=== PATIENT | female | born 1990 | race Caucasian/White ===

== ENCOUNTER 2024-08-19 10:27 | Emergency (ER) | payer BC, SELFPAY ==
[2024-08-19 10:56] VITALS: BP 127/87
--- NOTE | 2024-08-19 10:58 | ED.GENMED ---
ED Provider Triage
<Dena Downey PA-C - Last Filed: 08/19/24 11:01>
-
Patient seen by provider in Triage?: Seen in Triage
Attestation: A medical screening examination has been initiated by a qualified medical provider. Based on the assessment performed at this time, it has been determined that an emergent medical condition may exist and the patient has been informed
that further medical evaluation and possible additional diagnostic testing may be needed.
HPI: 33yoF currently 6 weeks . C/o R ovary pain. Sent here by her OBGYN to r/o ectopic . Has not had an US or seen OB yes this .
GENERAL: Alert , in no apparent distress
EYE: No visual abnormalities.
NECK: Trachea midline
ENT: No visible abnormalities.
LUNGS: No acute respiratory distress
NEUROLOGICAL: Alert and oriented
SKIN: Skin intact. No visible changes.
MUSCULOSKELETAL: Moving extremities normally
PSYCH: Normal and appropriate interaction.
This is a medical evaluation conducted in person to initiate diagnostic evaluation and provide initial therapeutics. Please see further documentation by the treating clinician.
CBC, CMP, quantitative HCG, and TVUS ordered.
History of Present Illness
<Dena Downey PA-C - Last Filed: 08/19/24 11:01>
General
Chief Complaint: Problems
Time Seen by Provider: 08/19/24 12:08
<Matteo Rubi PA-C - Last Filed: 08/19/24 14:18>
General
Source: patient
Exam Limitations: none
History of Present Illness
History of Present Illness:
33-year-old female presents complaining of right sided abdominal pain over the past day and a half. It is a little better right now than it has been recently. She denies any vaginal bleeding. She estimates she is about 6 weeks .
She is due to see her OB for the first time next week. [place]. No chest pain or shortness of breath. No other complaints at this time
Phy Exam
<Matteo Rubi PA-C - Last Filed: 08/19/24 14:18>
Physical Exam
Physical Exam:
General: Well-appearing female no acute distress
HEENT: Normocephalic atraumatic
Heart: Regular rate and rhythm no murmurs
Lungs: Clear no wheeze
Abdomen soft nontender nondistended no guarding rebound normal bowel sounds
Extremities: No sign of
Course
<Dena Downey PA-C - Last Filed: 08/19/24 11:01>
Orders/Labs/Results
Orders:
Orders
08/19/24 11:00
w/ Transvaginal US [US W Transvaginal] Urgent
Comment:
Reason For Exam: RLQ pain, 6 weeks , r/o ectopic
08/19/24 11:06
Beta HCG Quantitative Urgent
Is this a screen?: No
Complete Blood Count/With Diff Urgent
Comprehensive Metabolic Panel Urgent
Abnormal Lab Results
08/19/24
11:06
MCH 26.8 L pg
(27.0-31.0)
MCHC 32.8 L g/dL
(33.0-37.0)
08/19/24 11:06
08/19/24 11:06
Vital Signs
Initial and Last Documented VS:
Initial Vital Signs
Temp Pulse Resp BP Pulse Ox
98.9 F 80 16 127/87 100
08/19/24 10:56 08/19/24 10:56 08/19/24 10:56 08/19/24 10:56 08/19/24 10:56
Last Documented Vital Signs
Temp Pulse Resp BP Pulse Ox
98.9 F 80 16 127/87 100
08/19/24 10:56 08/19/24 10:56 08/19/24 10:56 08/19/24 10:56 08/19/24 10:56
<Matteo Rubi PA-C - Last Filed: 08/19/24 14:18>
Orders/Labs/Results
Orders:
Orders
08/19/24 11:00
w/ Transvaginal US [US W Transvaginal] Urgent
Comment:
Reason For Exam: RLQ pain, 6 weeks , r/o ectopic
08/19/24 11:06
Beta HCG Quantitative Urgent
Is this a screen?: No
Complete Blood Count/With Diff Urgent
Comprehensive Metabolic Panel Urgent
Abnormal Lab Results
08/19/24
11:06
MCH 26.8 L pg
(27.0-31.0)
MCHC 32.8 L g/dL
(33.0-37.0)
08/19/24 11:06
08/19/24 11:06
Vital Signs
Initial and Last Documented VS:
Initial Vital Signs
Temp Pulse Resp BP Pulse Ox
98.9 F 80 16 127/87 100
08/19/24 10:56 08/19/24 10:56 08/19/24 10:56 08/19/24 10:56 08/19/24 10:56
Last Documented Vital Signs
Temp Pulse Resp BP Pulse Ox
98.9 F 80 16 127/87 100
08/19/24 10:56 08/19/24 10:56 08/19/24 10:56 08/19/24 10:56 08/19/24 10:56
Information
Weeks gestation: N/A
Location: N/A
<Matteo Rubi PA-C - Last Filed: 08/19/24 14:18>
MDM/Problems Addressed
Differential Diagnosis Includes:
Right sided abdominal pain. Sent in by OB to rule out ectopic. Serum hCG is 1807
Hemoglobin stable vital signs stable
Ultrasound reviewed that was ordered through triage with demonstrates 4 mm finding what was thought to be in the uterus but it is unclear. There is also a left sided ovarian cyst. Ectopic not completely ruled out
Discussed findings with OB who recommended repeat hCG early next week with close follow-up in the office. Patient was made aware of this. Stable for discharge
<Matteo Rubi PA-C - Last Filed: 08/19/24 14:18>
*Critical Care Note
Total Time (30-74mins, 75-104mins- exclusive of procedures): Not Applicable
ED Attending Note
<Dena Downey PA-C - Last Filed: 08/19/24 11:01>
-
Portions of this chart may have been created with voice recognition software.� Occasional wrong word or��sound alike� substitutions may have occurred due to the inherent limitations of voice recognition software.
Discharge Plan
Departure
Patient Disposition: Home (Routine Discharge)
Date of Disposition: 08/19/24
Time of Disposition: 14:13
Patient with high blood pressure during this ER visit?: No
Discharge Problem:
Abdominal pain
Instructions: Miscarriage (DC), symptoms
Prescriptions:
No Action
cyclobenzaprine 10 mg tablet
10 mg PO TID PRN (Reason: muscle spasm) Qty: 21 0RF
Referrals:
NONE,* [Family Provider] -
Activity Restrictions/Additional Instructions:
Please have blood rechecked early next week. Please continue to follow-up as planned with OB. Return here for increasing pain lightheadedness fever vomiting or other concerning findings
Discharge Date and Time
Print Language: DOMINICAN
[2024-08-19 11:19] LABS: % Basophils 0.2 % (0-2); % Eosinophils 0.7 % (0-6); % Immature Granulocytes 0.4 % (0-0.5); % Lymphocytes 23.7 % (20.5-51.1); % Monocytes 5.8 % (1.7-9.3); % Neutrophils 69.2 % (42.2-75.2); Absolute Eosinophils 0.1 10^3/uL (0-0.7); Absolute Monocytes 0.5 10^3/uL (0.1-0.6); Absolute Neutrophils 5.9 10^3/uL (1.4-6.5); Hemoglobin 12.8 g/dL (12.0-16.0); Mean Corp Hgb Conc. 32.8 g/dL (33.0-37.0); Mean Corpuscular Hgb 26.8 pg (27.0-31.0); Mean Corpuscular Volume 81.8 fL (81.0-99.0); Mean Platelet Volume 8.5 fL (7.4-10.4); Nucleated Red Blood Cells % 0 %; Platelet Count 332 10^3/uL (130-400); Red Blood Cell Count 4.77 10^6/uL (4.20-5.40); Red Cell Dist. Width 13.2 % (11.5-14.5); White Blood Cell Count 8.5 10^3/uL (4.8-10.8)
[2024-08-19 11:39] LABS: ALT (SGPT) 20 U/L (0-35); AST (SGOT) 20 U/L (14-36); Albumin 4.4 g/dl (3.5-5.0); Alkaline Phosphatase 78 U/L (38-126); Blood Urea Nitrogen 8 mg/dl (7-17); Calcium 9.8 mg/dl (8.4-10.2); Carbon Dioxide 25 mmol/L (22-30); Chloride 104 mmol/L (98-107); Glucose 97 mg/dl (70-99); Potassium 4.2 mmol/L (3.5-5.1); Sodium 140 mmol/L (135-145); Total Bilirubin 0.9 mg/dl (0.2-1.3); Total Protein 6.9 g/dl (6.3-8.2); eGFR > 60.00
[2024-08-19 12:00] VITALS: BP 123/58
[2024-08-19 14:00] VITALS: BP 128/67
== END 2024-08-19 14:27 | disposition home or self-care (01) ==
LOC: EMR 10:27
PROVIDERS: Physician Assistant; EMERGENCY PHYSICIAN Student in an Organized Health Care Education/Training Program
DX: O26.891 Other specified pregnancy related conditions, first trimester (principal); R10.31 Right lower quadrant pain; Z3A.01 Less than 8 weeks gestation of pregnancy
CPT/HCPCS: 99284; 76801; 76817; 80053; 84702; 85025

== ENCOUNTER → 2024-08-25 11:28 | Outpatient (REF) | payer BC, SELFPAY | LOC: RAD 11:28 | PROVIDERS: ATTENDING PHYSICIAN Advanced Practice Midwife | DX: R10.2 Pelvic and perineal pain (principal) | CPT/HCPCS: 76801; 76817 ==

== ENCOUNTER → 2024-08-30 13:52 | Outpatient (REF) | payer BC, SELFPAY | LOC: RAD 13:52 | PROVIDERS: ATTENDING PHYSICIAN Obstetrics & Gynecology | DX: R10.2 Pelvic and perineal pain (principal) | CPT/HCPCS: 76801 ==

== ENCOUNTER 2024-09-06 14:15 | Emergency (ER) | payer BC, SELFPAY ==
[2024-09-06 14:26] VITALS: BP 139/78
[2024-09-06 14:58] LABS: % Basophils 0.2 % (0-2); % Eosinophils 0.5 % (0-6); % Immature Granulocytes 0.2 % (0-0.5); % Lymphocytes 20.1 % (20.5-51.1); % Monocytes 5.2 % (1.7-9.3); % Neutrophils 73.8 % (42.2-75.2); Absolute Lymphocytes 1.8 10^3/uL (1.2-3.4); Absolute Monocytes 0.5 10^3/uL (0.1-0.6); Absolute Neutrophils 6.4 10^3/uL (1.4-6.5); Hematocrit 36.2 % (37.0-47.0); Hemoglobin 12.1 g/dL (12.0-16.0); Mean Corp Hgb Conc. 33.4 g/dL (33.0-37.0); Mean Corpuscular Hgb 27.1 pg (27.0-31.0); Mean Platelet Volume 8.7 fL (7.4-10.4); Nucleated Red Blood Cells % 0 %; Platelet Count 287 10^3/uL (130-400); Red Blood Cell Count 4.47 10^6/uL (4.20-5.40); Red Cell Dist. Width 13.2 % (11.5-14.5); White Blood Cell Count 8.7 10^3/uL (4.8-10.8)
[2024-09-06 15:11] LABS: ALT (SGPT) 17 U/L (0-35); AST (SGOT) 18 U/L (14-36); Albumin 4.2 g/dl (3.5-5.0); Alkaline Phosphatase 70 U/L (38-126); Blood Urea Nitrogen 8 mg/dl (7-17); Calcium 9.5 mg/dl (8.4-10.2); Carbon Dioxide 23 mmol/L (22-30); Chloride 102 mmol/L (98-107); Glucose 153 mg/dl (70-99); Potassium 3.8 mmol/L (3.5-5.1); Sodium 136 mmol/L (135-145); Total Bilirubin 0.8 mg/dl (0.2-1.3); Total Protein 6.6 g/dl (6.3-8.2); eGFR > 60.00
--- NOTE | 2024-09-06 15:37 | ED.GENMED ---
History of Present Illness
General
Chief Complaint: Problems
Source: patient
Time Seen by Provider: 09/06/24 15:22
History of Present Illness
History of Present Illness:
33yo female currently 7 weeks presenting for evaluation of nausea and vomiting. Symptoms began 2 days ago. She has not been able to tolerate any PO intake since her symptoms began. She started to feel lightheaded today and her OBGYN
instructed her to the go to the ED for evaluation. Urine output is slightly less than normal. She denies any fevers, diarrhea, abdominal pain, vaginal bleeding. She follows with [facility] and has had multiple ultrasounds this which
have confirmed a live IUP.
Phy Exam
General Physical Exam
General Presentation: well appearing and no apparent distress
General age: appears stated age
General Skin: warm and dry
General Habitus: normal
General Mental: alert
General Hydration: appears well hydrated
ENT Exam
ENT Exam: normocephalic
Cardiovascular Exam
Cardiovascular Exam: regular rate/rhythm
Pulmonary Exam
Pulmonary Exam: lungs clear, no respiratory distress, no crackles and no wheezing
Gastrointestinal Exam
Gastrointestinal Exam: non tender, soft and non distended
Jennifer Coma Scale
Eye Opening: Spontaneous
Verbal Response: Oriented
Motor Response: Obeys Commands
GCS Total Score: 15
Skin Exam
Skin Exam: normal color and warm/dry
Psychiatric Exam
Psychiatric Exam: normal mood/affect
Course
Orders/Labs/Results
Orders:
Orders
09/06/24 14:48
Beta HCG Quantitative Urgent
Is this a screen?: No
Complete Blood Count/With Diff Urgent
Comprehensive Metabolic Panel Urgent
09/06/24 15:37
0.9% Sodium Chloride 500 ml [Nss] 500 ml IV BOLUS
Ondansetron Injectable [Zofran] 4 mg IV NOW STA
09/06/24 16:[address] Non Medication Order As Directed
Physician Order: PO challenge
Above order entered?: Yes
Abnormal Lab Results
09/06/24
14:48
Hct 36.2 L %
(37.0-47.0)
Lymphocytes % 20.1 L %
(20.5-51.1)
Glucose 153 H mg/dl
(70-99)
09/06/24 14:48
09/06/24 14:48
Vital Signs
Initial and Last Documented VS:
Initial Vital Signs
Temp Pulse Resp BP Pulse Ox
98.3 F 86 16 139/78 98
09/06/24 14:26 09/06/24 14:26 09/06/24 14:26 09/06/24 14:26 09/06/24 14:26
Last Documented Vital Signs
Temp Pulse Resp BP Pulse Ox
98.3 F 86 16 139/78 98
09/06/24 14:26 09/06/24 14:26 09/06/24 14:26 09/06/24 14:26 09/06/24 14:26
Information
Weeks gestation: Weeks: (7)
Location: N/A
MDM/Problems Addressed
Differential Diagnosis Includes:
33yoF here with n/v x 2 days and inability to tolerate PO intake. Currently 7 weeks . No abdominal pain or vaginal bleeding. VSS. She is well-appearing in no acute distress. Abdominal exam is benign. Differential diagnosis includes but is
not limited to: Morning sickness, hyperemesis gravidarum, dehydration, electrolyte abnormality
Initial ED plan: Lab work obtained in triage. Electrolytes and renal function are fortunately normal. Glucose is mildly elevated at 153. Suspect this is reactive due to vomiting. IV fluid bolus and Zofran ordered for symptoms.
*Critical Care Note
Total Time (30-74mins, 75-104mins- exclusive of procedures): Not Applicable
Update Note
Update Note:
Patient was able to take several sips of isiah aaron without any vomiting. She reports continued nausea although declines any additional medications. 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 No indication for hospitalization at this time. Prescriptions provided for vitamin B6 as well as Zofran. She was also advised to use Unisom nightly. Advised close follow-up with CARPET FINISHING [employer]PER[employer]. ED return precautions discussed. She
expressed understanding is agreeable to plan. She was discharged in stable condition.
ED Attending Note
-
Portions of this chart may have been created with voice recognition software.� Occasional wrong word or��sound alike� substitutions may have occurred due to the inherent limitations of voice recognition software.
Discharge Plan
Departure
Patient Disposition: Home (Routine Discharge)
Date of Disposition: 09/06/24
Time of Disposition: 17:32
Patient with high blood pressure during this ER visit?: No
Discharge Problem:
Nausea and vomiting during
Instructions: Morning Sickness (DC)
Prescriptions:
New
pyridoxine (vitamin B6) 25 mg tablet
25 mg PO TID Qty: 21 0RF
ondansetron 4 mg tablet,disintegrating
4 mg PO Q6H PRN (Reason: nausea and vomiting) Qty: 20 0RF
No Action
cyclobenzaprine 10 mg tablet
10 mg PO TID PRN (Reason: muscle spasm) Qty: 21 0RF
Referrals:
NONE,* [Family Provider] -
Stand Alone Forms: Return to Work
Activity Restrictions/Additional Instructions:
Start taking Unisom 12.5-25mg once daily at bedside. Take vitamin B6 as prescribed. Take Zofran as needed for nausea. Drink small sips of fluids frequently for hydration.
Please follow-up with your OBGYN this week. Return to the ER with any worsening symptoms or inability to keep down fluids.
Interventions
Interventions:
*Risk Screen - Suicide Last Done: 09/06/24 14:26
*Neglect/Abuse Screening Last Done: 09/06/24 14:26
*Nursing Disposition Last Done: 09/06/24 18:19
ED-Female Genitourinary Assessment Last Done: 09/06/24 17:30
Discharge Date and Time
Discharge Date/Time: 09/06/24 18:19
Print Language: BULGARIAN
[2024-09-06] MEDS: ZOFRAN 4 MG IV (15:55)
[2024-09-06] MEDS: NSS 500 IV (15:55)
== END 2024-09-06 18:19 | disposition home or self-care (01) ==
LOC: EMR 14:15
PROVIDERS: Emergency Medicine; EMERGENCY PHYSICIAN Student in an Organized Health Care Education/Training Program
DX: O21.9 Vomiting of pregnancy, unspecified (principal); Z3A.01 Less than 8 weeks gestation of pregnancy
CPT/HCPCS: 96374; 96361; 99284; 80053; 84702; 85025

== ENCOUNTER 2024-09-08 08:14 | Emergency (ER) | payer BC, SELFPAY ==
[2024-09-08 08:15] VITALS: BP 117/84
[2024-09-08 08:43] VITALS: BMI 33.1
--- NOTE | 2024-09-08 08:43 | ED.GENMED ---
History of Present Illness
General
Chief Complaint: Problems
Source: patient and records
Time Seen by Provider: 09/08/24 08:20
History of Present Illness
History of Present Illness:
33-year-old female, G10, P2, 7 miscarriages presenting to the emergency department for evaluation after she started having some light vaginal bleeding this morning upon awakening and going to urinate. Patient also admits to some lower abdominal
cramping. Follows with [facility], has been seen in this emergency department twice for related symptoms over the last few weeks. She initially had blood work and an ultrasound done at the beginning of the month which
showed a hormone level of around just over thousand and a possible IUP but too small to characterize. Patient unfortunately did not get repeat hCG level 48 hours following this ER visit. No other concerns.
Past History
Past History
ED Past Surgical History: Cholecystectomy and
Social History
Tobacco: Non-smoker
Alcohol: None
Drug: None
Personal:
Living: with family
Review of Systems
Review of Systems
All Other Systems: ROS reviewed and negative except as documented in HPI and ROS
Phy Exam
Physical Exam
Physical Exam:
GENERAL: Alert , in no apparent distress
EYE: clear conjunctiva b/l
HEAD: NCAT
ENT: mmm.
CARDIAC: Regular rate and rhythm .
LUNGS: Clear breath sounds bilaterally, no acute respiratory distress, no wheezes/rales/rhonchi
ABDOMEN: Soft, without focal tenderness, no r/g, no cvat
NEUROLOGICAL: Alert and oriented
SKIN: Warm and dry, skin intact.
MUSCULOSKELETAL: well perfused.
PSYCH: Normal and appropriate interaction.
Scores
Heart Failure Risk
Heart Failure Risk Score: Not Applicable
Heart Score for Chest Pain Patients
STEMI patient?: Not applicable
Withdrawal Assessment of Alcohol
Withdrawal Assessment Completed?: Not applicable
Course
Orders/Labs/Results
Orders:
Orders
09/08/24 08:21
Test Result ONCE
US 1st Trimester Urgent
Comment:
Reason For Exam: vaginal bleeding, 8 weeks preg
09/08/24 08:47
Type+Screen Urgent
BBK Wristband Number:
Basic Metabolic Panel Urgent
Beta HCG Quantitative Urgent
Comment: ADD ON
Complete Blood Count/With Diff Urgent
HCG, Serum Qualitative Screen Urgent
09/08/24 09:27
Add On- LAB Urgent
Tests Added?: HCG quantitative
09/08/24 09:48
ABO2 Urgent
BBK Wristband Number:
Associate notified that ABO2 has been ordered: [id number]
Date: 09/08/24
Time: 09:48
Development Rep ID: [id number]
Abnormal Lab Results
09/08/24
08:47
Hct 36.6 L %
(37.0-47.0)
MCV 77.7 L fL
(81.0-99.0)
MCH 26.3 L pg
(27.0-31.0)
Carbon Dioxide 21 L mmol/L
(22-30)
09/08/24 08:47
09/08/24 08:47
Vital Signs
Initial and Last Documented VS:
Initial Vital Signs
Temp Pulse Resp BP Pulse Ox
98.1 F 83 18 117/84 99
09/08/24 08:15 09/08/24 08:15 09/08/24 08:15 09/08/24 08:15 09/08/24 08:15
Last Documented Vital Signs
Temp Pulse Resp BP Pulse Ox
98.1 F 83 18 101/65 99
09/08/24 08:15 09/08/24 08:15 09/08/24 08:15 09/08/24 12:00 09/08/24 12:45
Information
Weeks gestation: Weeks: (7W3D)
Location: Location: (IUP)
MDM/Problems Addressed
Differential Diagnosis Includes:
threatened AB, incomplete AB, completed AB, ectopic
MDM/Problems Addressed:
33-year-old female presenting to the emergency department for evaluation of vaginal bleeding/spotting that started today. History of multiple miscarriages in the past. Patient in no acute distress and hemodynamically stable. Will obtain labs and
ultrasound. Disposition pending. Will contact OB to discuss.
*Radiology
Radiology exam reviewed: radiology read reviewed
*Pulse Oximetry
Patient hypoxic: no
*Critical Care Note
Total Time (30-74mins, 75-104mins- exclusive of procedures): Not Applicable
Data Reviewed
Review of Other/Old Records Reveals: Labs, Records and Radiology Studies
Source: patient
Patient Management
Escalation/DeEscalation of care consider admission/obs:
Patient's ultrasound shows currently 7 weeks and 3 days . There is a single viable IUP with a measured heart rate of 158 bpm. Patient has remained hemodynamically stable and in no acute distress. Stable for discharge home and will
follow-up with [facility]
ED Attending Note
-
Portions of this chart may have been created with voice recognition software.� Occasional wrong word or��sound alike� substitutions may have occurred due to the inherent limitations of voice recognition software.
Discharge Plan
Departure
Patient Disposition: Home (Routine Discharge)
Date of Disposition: 09/08/24
Time of Disposition: 12:49
Patient with high blood pressure during this ER visit?: No
Discharge Problem:
Threatened
Instructions: Threatened Miscarriage (DC)
Prescriptions:
No Action
cyclobenzaprine 10 mg tablet
10 mg PO TID PRN (Reason: muscle spasm) Qty: 21 0RF
pyridoxine (vitamin B6) 25 mg tablet
25 mg PO TID Qty: 21 0RF
ondansetron 4 mg tablet,disintegrating
4 mg PO Q6H PRN (Reason: nausea and vomiting) Qty: 20 0RF
Referrals:
NONE,* [Family Provider] -
Interventions
Interventions:
*Risk Screen - Suicide Last Done: 09/08/24 08:15
*General Assessment Last Done: 09/08/24 08:15
*Neglect/Abuse Screening Last Done: 09/08/24 08:15
ED- Fall Risk Assessment Last Done: 09/08/24 08:46
*ED COVID-19 Vaccine History Last Done: 09/08/24 08:43
*Nursing Disposition Last Done: 09/08/24 12:59
ED-Female Genitourinary Assessment Last Done: 09/08/24 08:43
Discharge Date and Time
Discharge Date/Time: 09/08/24 13:00
Print Language: SYRIAN
[2024-09-08 09:04] LABS: % Basophils 0.4 % (0-2); % Eosinophils 0.7 % (0-6); % Immature Granulocytes 0.3 % (0-0.5); % Lymphocytes 20.5 % (20.5-51.1); % Monocytes 5.4 % (1.7-9.3); % Neutrophils 72.7 % (42.2-75.2); Absolute Eosinophils 0.1 10^3/uL (0-0.7); Absolute Lymphocytes 1.5 10^3/uL (1.2-3.4); Absolute Monocytes 0.4 10^3/uL (0.1-0.6); Absolute Neutrophils 5.3 10^3/uL (1.4-6.5); Hematocrit 36.6 % (37.0-47.0); Hemoglobin 12.4 g/dL (12.0-16.0); Mean Corp Hgb Conc. 33.9 g/dL (33.0-37.0); Mean Corpuscular Hgb 26.3 pg (27.0-31.0); Mean Corpuscular Volume 77.7 fL (81.0-99.0); Mean Platelet Volume 8.6 fL (7.4-10.4); Nucleated Red Blood Cells % 0 %; Platelet Count 302 10^3/uL (130-400); Red Blood Cell Count 4.71 10^6/uL (4.20-5.40); Red Cell Dist. Width 13.2 % (11.5-14.5); White Blood Cell Count 7.4 10^3/uL (4.8-10.8)
[2024-09-08 09:16] LABS: HCG, Serum Qualitative Screen Positive
[2024-09-08 09:18] LABS: Blood Urea Nitrogen 9 mg/dl (7-17); Calcium 9.3 mg/dl (8.4-10.2); Carbon Dioxide 21 mmol/L (22-30); Chloride 104 mmol/L (98-107); Estimated Creatinine Clearance > 125 ml/min; Glucose 92 mg/dl (70-99); Sodium 139 mmol/L (135-145); eGFR > 60.00
[2024-09-08 11:49] VITALS: BP 103/72
[2024-09-08 12:00] VITALS: BP 101/65
== END 2024-09-08 13:00 | disposition home or self-care (01) ==
LOC: EMR 08:14
PROVIDERS: Physician Assistant Medical; EMERGENCY PHYSICIAN Student in an Organized Health Care Education/Training Program
DX: O20.0 Threatened abortion (principal); Z3A.01 Less than 8 weeks gestation of pregnancy; Z90.49 Acquired absence of other specified parts of digestive tract
CPT/HCPCS: 99284; 76801; 80048; 84702; 84703; 85025; 86850; 86900; 86901

== ENCOUNTER 2024-10-13 14:28 | Emergency (ER) | payer BC, SELFPAY ==
[2024-10-13 14:31] VITALS: BP 126/87
--- NOTE | 2024-10-13 14:38 | ED.GENMED ---
ED Provider Triage
<Matteo Rubi PA-C - Last Filed: 10/13/24 14:40>
-
Patient seen by provider in Triage?: Seen in Triage
34-year-old female currently 13 weeks along presents with nausea vomiting and constipation. She notes generalized abdominal discomfort. She has not had significant bowel movement in over 2 weeks. She states she has not been able to keep
anything down. 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 Vital signs are stable.
Will check labs including CBC CMP and lipase. ODT Zofran ordered. Deferred on imaging for now
Patient received a medical screening assessment by healthcare provider through triage. She needs further evaluation
History of Present Illness
<Matteo Rubi PA-C - Last Filed: 10/13/24 14:40>
General
Chief Complaint: Abdominal Symptoms
Time Seen by Provider: 10/13/24 16:26
<Liang Brandt PA-C - Last Filed: 10/13/24 22:43>
History of Present Illness
History of Present Illness:
34-year-old female, 13 weeks gestational age, presents to the emergency department for evaluation of intractable nausea and vomiting. She has had morning sickness for the past several weeks however it is worsened in the past week or 2. Also
reports right lower quadrant pain that is been felt to be related to an ovarian cyst, now increasing and radiating toward the back. Reports decreased urination and no dysuria or urgency. No current vaginal bleeding or discharge.
Past History
<VAUGHN Amado Last Filed: 10/13/24 14:40>
Past History
ED Past Surgical History: Cholecystectomy and
Social History
Tobacco: Non-smoker
Alcohol: None
Drug: None
Personal:
Living: with family
Review of Systems
<Liang Brandt PA-C - Last Filed: 10/13/24 22:43>
Review of Systems
Allergies reviewed?: Yes
All Other Systems: ROS reviewed and negative except as documented in HPI and ROS
Phy Exam
<Liang Brandt PA-C - Last Filed: 10/13/24 22:43>
Physical Exam
Physical Exam:
GEN: Well appearing, NAD, WDWN
HEENT: Oral mucosa moist, no scleral icterus
Cardiac: Regular rate
Lung: No respiratory distress, no tachypnea
MSK: No gross deformity or injuries
Skin: Good color, no pallor or jaundice, no rashes
Neuro: AO x3, moves all extremities freely
Psych: Calm, cooperative
Course
<Matteo Rubi PA-C - Last Filed: 10/13/24 14:40>
Orders/Labs/Results
Orders:
Orders
10/13/24 14:38
Ondansetron Orally Disint [Zofran Odt (Orally Disintegrating)] 4 mg PO NOW STA
10/13/24 14:49
Complete Blood Count/With Diff Urgent
Comprehensive Metabolic Panel Urgent
Lipase Urgent
10/13/24 16:53
US Renal With Bladder Urgent
Comment:
Reason For Exam: R flank/RLQ pain
10/13/24 18:51
0.9% Sodium Chloride 1000 ml [Nss] 1,000 ml IV BOLUS
Ondansetron Injectable [Zofran] 4 mg IV NOW STA
10/13/24 19:06
Urinalysis Reflex To Culture Urgent
Date Specimen was Collected: 10/13/24
Time Specimen was Collected: 17:56
Urine Microscopic Reflex Cult Urgent
Urine Culture Urgent
PATRICK Source: U
Specimen Description:
Date Specimen was Collected: 10/13/24
Time Specimen was Collected: 17:56
Abnormal Lab Results
10/13/24 10/13/24
14:49 19:06
Absolute Neuts (auto) 6.9 H 10^3/uL
(1.4-6.5)
Neutrophils % 81.0 H %
(42.2-75.2)
Lymphocytes % 13.5 L %
(20.5-51.1)
Creatinine 0.5 L mg/dL
(0.6-1.0)
Urine Ketones 2+ A
(Negative)
Leukocyte Esterase Rfl 2+ A
(Negative)
Urine Bacteria (Reflex) Many A
(Negative)
10/13/24 14:49
10/13/24 14:49
Vital Signs
Initial and Last Documented VS:
Initial Vital Signs
Temp Pulse Resp BP Pulse Ox
98.1 F 84 16 126/87 99
10/13/24 14:31 10/13/24 14:31 10/13/24 14:31 10/13/24 14:31 10/13/24 14:31
Last Documented Vital Signs
Temp Pulse Resp BP Pulse Ox
98.1 F 80 18 122/78 99
10/13/24 14:31 10/13/24 21:03 10/13/24 21:03 10/13/24 21:03 10/13/24 21:03
<Liang Brandt PA-C - Last Filed: 10/13/24 22:43>
Orders/Labs/Results
Orders:
Orders
10/13/24 14:38
Ondansetron Orally Disint [Zofran Odt (Orally Disintegrating)] 4 mg PO NOW STA
10/13/24 14:49
Complete Blood Count/With Diff Urgent
Comprehensive Metabolic Panel Urgent
Lipase Urgent
10/13/24 16:53
US Renal With Bladder Urgent
Comment:
Reason For Exam: R flank/RLQ pain
10/13/24 18:51
0.9% Sodium Chloride 1000 ml [Nss] 1,000 ml IV BOLUS
Ondansetron Injectable [Zofran] 4 mg IV NOW STA
10/13/24 19:06
Urinalysis Reflex To Culture Urgent
Date Specimen was Collected: 10/13/24
Time Specimen was Collected: 17:56
Urine Microscopic Reflex Cult Urgent
Urine Culture Urgent
PATRICK Source: U
Specimen Description:
Date Specimen was Collected: 10/13/24
Time Specimen was Collected: 17:56
Abnormal Lab Results
10/13/24 10/13/24
14:49 19:06
Absolute Neuts (auto) 6.9 H 10^3/uL
(1.4-6.5)
Neutrophils % 81.0 H %
(42.2-75.2)
Lymphocytes % 13.5 L %
(20.5-51.1)
Creatinine 0.5 L mg/dL
(0.6-1.0)
Urine Ketones 2+ A
(Negative)
Leukocyte Esterase Rfl 2+ A
(Negative)
Urine Bacteria (Reflex) Many A
(Negative)
10/13/24 14:49
10/13/24 14:49
Vital Signs
Initial and Last Documented VS:
Initial Vital Signs
Temp Pulse Resp BP Pulse Ox
98.1 F 84 16 126/87 99
10/13/24 14:31 10/13/24 14:31 10/13/24 14:31 10/13/24 14:31 10/13/24 14:31
Last Documented Vital Signs
Temp Pulse Resp BP Pulse Ox
98.1 F 80 18 122/78 99
10/13/24 14:31 10/13/24 21:03 10/13/24 21:03 10/13/24 21:03 10/13/24 21:03
<Liang Brandt PA-C - Last Filed: 10/13/24 22:43>
MDM/Problems Addressed
MDM/Problems Addressed:
Renal ultrasound shows no evidence for hydronephrosis, urinalysis does have bacteriuria however she has no lower urinary tract voiding symptoms thus will avoid treatment at this time until urine culture results. Tolerating p.o. at time of
discharge. 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 She has no vaginal bleeding or discharge warranting ultrasound today
<Liang Brandt PA-C - Last Filed: 10/13/24 22:43>
*Critical Care Note
Total Time (30-74mins, 75-104mins- exclusive of procedures): Not Applicable
ED Attending Note
<Matteo Rubi PA-C - Last Filed: 10/13/24 14:40>
-
Portions of this chart may have been created with voice recognition software.� Occasional wrong word or��sound alike� substitutions may have occurred due to the inherent limitations of voice recognition software.
Discharge Plan
Departure
Patient Disposition: Home (Routine Discharge)
Date of Disposition: 10/13/24
Time of Disposition: 20:33
Patient with high blood pressure during this ER visit?: No
Discharge Problem:
Nausea and vomiting during
Instructions: Nausea and Vomiting, Adult (DC)
Prescriptions:
New
ondansetron 4 mg tablet,disintegrating
4 mg PO TIDPRN PRN (Reason: nausea/vomiting) Qty: 20 0RF
No Action
cyclobenzaprine 10 mg tablet
10 mg PO TID PRN (Reason: muscle spasm) Qty: 21 0RF
pyridoxine (vitamin B6) 25 mg tablet
25 mg PO TID Qty: 21 0RF
ondansetron 4 mg tablet,disintegrating
4 mg PO Q6H PRN (Reason: nausea and vomiting) Qty: 20 0RF
Referrals:
UNKNOWN - PT DOES,NOT KNOW [Family Provider] -
Interventions
Interventions:
*Risk Screen - Suicide Last Done: 10/13/24 14:31
*General Assessment Last Done: 10/13/24 14:31
*Neglect/Abuse Screening Last Done: 10/13/24 14:31
*ED COVID-19 Vaccine History Last Done: 10/13/24 14:31
*Nursing Disposition Last Done: 10/13/24 21:04
RI-Hkabff-Jgpxghzogu Assessment Last Done: 10/13/24 16:29
Discharge Date and Time
Discharge Date/Time: 10/13/24 21:05
Print Language: [place] KORE[place]
[2024-10-13] MEDS: ZOFRAN ODT (ORALLY DISINTEGRATING) 4 MG PO (14:41)
[2024-10-13 15:02] LABS: % Basophils 0.2 % (0-2); % Eosinophils 0.5 % (0-6); % Immature Granulocytes 0.4 % (0-0.5); % Lymphocytes 13.5 % (20.5-51.1); % Monocytes 4.4 % (1.7-9.3); Absolute Lymphocytes 1.2 10^3/uL (1.2-3.4); Absolute Monocytes 0.4 10^3/uL (0.1-0.6); Absolute Neutrophils 6.9 10^3/uL (1.4-6.5); Hematocrit 39.5 % (37.0-47.0); Hemoglobin 13.1 g/dL (12.0-16.0); Mean Corp Hgb Conc. 33.2 g/dL (33.0-37.0); Mean Corpuscular Volume 81.3 fL (81.0-99.0); Mean Platelet Volume 8.6 fL (7.4-10.4); Nucleated Red Blood Cells % 0 %; Platelet Count 269 10^3/uL (130-400); Red Blood Cell Count 4.86 10^6/uL (4.20-5.40); Red Cell Dist. Width 13.5 % (11.5-14.5); White Blood Cell Count 8.5 10^3/uL (4.8-10.8)
[2024-10-13 15:18] LABS: ALT (SGPT) 14 U/L (0-35); AST (SGOT) 18 U/L (14-36); Albumin 4.3 g/dl (3.5-5.0); Alkaline Phosphatase 103 U/L (38-126); Blood Urea Nitrogen 7 mg/dl (7-17); Calcium 9.6 mg/dl (8.4-10.2); Carbon Dioxide 24 mmol/L (22-30); Chloride 104 mmol/L (98-107); Glucose 95 mg/dl (70-99); Lipase 109 U/L (23-300); Potassium 4.3 mmol/L (3.5-5.1); Sodium 138 mmol/L (135-145); Total Bilirubin 1.2 mg/dl (0.2-1.3); Total Protein 7.2 g/dl (6.3-8.2); eGFR > 60.00
[2024-10-13 16:29] VITALS: BP 116/76; BMI 31.3
[2024-10-13] MEDS: ZOFRAN 4 MG IV (19:04)
[2024-10-13] MEDS: NSS 1000 IV (19:04)
[2024-10-13 19:25] LABS: Urine Albumin Negative (Neg - Trace); Urine Bilirubin Negative (Negative); Urine Character Clear (Clear); Urine Color Yellow; Urine Glucose Negative (Negative); Urine Ketone 2+ (Negative); Urine Leukocyte 2+ (Negative); Urine Nitrite Negative (Negative); Urine Occult Blood Negative (Negative); Urine Urobilinogen Negative (Neg - 1+)
[2024-10-13 19:38] LABS: Urine Squamous Cell >30 /LPF (Few)
[2024-10-13 19:39] LABS: Urine Bacteria Many (Negative); Urine Red Blood Cell 0-2 /HPF (0-2)
[2024-10-13 21:03] VITALS: BP 122/78
== END 2024-10-13 21:05 | disposition home or self-care (01) ==
LOC: EMR 14:28
PROVIDERS: Physician Assistant; EMERGENCY PHYSICIAN Emergency Medicine
DX: O21.9 Vomiting of pregnancy, unspecified (principal); Z3A.13 13 weeks gestation of pregnancy
CPT/HCPCS: 99284; 96374; 96361; 76770; 80053; 81003; 81015; 83690; 85025; 87086

== ENCOUNTER → 2024-11-09 07:26 | Outpatient (REF) | payer BC, SELFPAY | LOC: PNTC 07:26 | PROVIDERS: ATTENDING PHYSICIAN Advanced Practice Midwife | DX: O09.622 Supervision of young multigravida, second trimester (principal); O26.22 Pregnancy care for patient with recurrent pregnancy loss, second trimester | CPT/HCPCS: 76805 ==

== ENCOUNTER 2024-11-20 14:26 | Emergency (ER) | payer BC, SELFPAY ==
[2024-11-20 14:29] VITALS: BP 146/91
[2024-11-20 15:18] VITALS: BP 121/76
[2024-11-20 16:07] LABS: % Basophils 0.3 % (0-2); % Eosinophils 0.8 % (0-6); % Immature Granulocytes 0.5 % (0-0.5); % Lymphocytes 16.3 % (20.5-51.1); % Monocytes 4.8 % (1.7-9.3); % Neutrophils 77.3 % (42.2-75.2); Absolute Eosinophils 0.1 10^3/uL (0-0.7); Absolute Lymphocytes 1.3 10^3/uL (1.2-3.4); Absolute Monocytes 0.4 10^3/uL (0.1-0.6); Absolute Neutrophils 6.2 10^3/uL (1.4-6.5); Hematocrit 34.3 % (37.0-47.0); Hemoglobin 11.6 g/dL (12.0-16.0); Mean Corp Hgb Conc. 33.8 g/dL (33.0-37.0); Mean Corpuscular Hgb 27.5 pg (27.0-31.0); Mean Corpuscular Volume 81.3 fL (81.0-99.0); Nucleated Red Blood Cells % 0 %; Platelet Count 263 10^3/uL (130-400); Red Blood Cell Count 4.22 10^6/uL (4.20-5.40); Red Cell Dist. Width 13.9 % (11.5-14.5)
--- NOTE | 2024-11-20 16:19 | ED.GENMED ---
History of Present Illness
General
Chief Complaint: Abdominal Pain
Source: patient
Exam Limitations: none
Time Seen by Provider: 11/20/24 15:39
Nursing documentation reviewed up to this point in time: agreed with
History of Present Illness
History of Present Illness:
pt is a 34 y/o F
approx 18 weeks preg
has seen a refrigeration specialist at the [facility]
'high risk' due to many miscarriages
having multiple symptoms
continues with morning sickness, which has been since began, and someimtes sees streak of pink/red in vomit which she did this am
for 1 week also having lower abd discomfort, pressure, and feeling 'not well'
pt says she has been in bed all week
also having some vaginal spotting here and there with wiping only, pink, not much
this is new as well
she also has a vaginal discharge with odor
has had UTI before ,doesn't think she has a uti but her pee smells strong
no fever/chills, diarrhea, syncope,
Past History
Past History
ED Past Surgical History: Cholecystectomy and
Social History
Tobacco: Non-smoker
Alcohol: None
Drug: None
Personal:
Living: with family
Phy Exam
Physical Exam
Physical Exam:
GENERAL: Alert , in no apparent distress
EYE: pupils equal and reactive
NECK: Supple
ENT: o/p clr, mmm.
CARDIAC: Regular rate and rhythm .
LUNGS: Clear breath sounds bilaterally, no acute respiratory distress, no wheezes/rales/rhonchi
: normal external
cloudy discharge
mild discomfort
no bleeding
os closed;
ABDOMEN: Soft, gravid mild suprapubic tendnersss;, no r/g, no cvat, normal bowel sounds
NEUROLOGICAL: Alert and oriented, no focal neuro deficits
SKIN: Warm and dry, skin intact.
MUSCULOSKELETAL: No edema, well perfused. neg xavier's sign
PSYCH: Normal and appropriate interaction.
Course
Orders/Labs/Results
Orders:
Orders
11/20/24 15:49
CMP [Comprehensive Metabolic Panel] Urgent
Complete Blood Count/With Diff Urgent
Lipase Urgent
Comment: ADD ON
11/20/24 16:16
Add On- LAB Urgent
Tests Added?: lipase
US Limited Urgent
Comment: check placenta and cervix
Reason For Exam: pelvic pain, vag bleeding 18 weeks preg;
11/20/24 17:29
Urinalysis Reflex To Culture Urgent
Date Specimen was Collected: 11/20/24
Time Specimen was Collected: 16:30
Urine Microscopic Reflex Cult Urgent
Urine Culture Urgent
PATRICK Source: U
Specimen Description:
Date Specimen was Collected: 11/20/24
Time Specimen was Collected: 16:30
11/20/24 18:09
CefTRIAXone [Rocephin] 1,000 mg IV NOW STA
Abnormal Lab Results
11/20/24 11/20/24
15:49 17:29
Hgb 11.6 L g/dL
(12.0-16.0)
Hct 34.3 L %
(37.0-47.0)
Neutrophils % 77.3 H %
(42.2-75.2)
Lymphocytes % 16.3 L %
(20.5-51.1)
Sodium 134 L mmol/L
(135-145)
Carbon Dioxide 20 L mmol/L
(22-30)
Creatinine 0.5 L mg/dL
(0.6-1.0)
Glucose 118 H mg/dl
(70-99)
Urine Bilirubin 1+ A
(Negative)
Urine Urobilinogen 3+ A
(Neg - 1+)
Leukocyte Esterase Rfl 2+ A
(Negative)
Urine WBC (Reflex) 30-40 A /HPF
(0-5)
Urine Bacteria (Reflex) Many A
(Negative)
11/20/24 15:49
11/20/24 15:49
Vital Signs
Initial and Last Documented VS:
Initial Vital Signs
Temp Pulse Resp BP Pulse Ox
36.9 C 100 18 146/91 99
11/20/24 14:29 11/20/24 14:29 11/20/24 14:29 11/20/24 14:29 11/20/24 14:29
Last Documented Vital Signs
Temp Pulse Resp BP Pulse Ox
36.9 C 79 20 128/70 100
11/20/24 14:29 11/20/24 17:53 11/20/24 17:53 11/20/24 17:53 11/20/24 17:53
MDM/Problems Addressed
Differential Diagnosis Includes:
UTI, cervicitis, BV, placenta previa, threatened miscarriage
MDM/Problems Addressed:
34 y/o F
lower pelvic pain x 1 week, spotting
some mild fatigue
morning sickness
no back pain, fever
no conern for STI
foul dishcarge, strong smelling urine
US shows IUP with good fhr
no placenta previa
ua positive
pelvic nontender
os closed
no bleeding
cloudy discharge c/w bv, but not tested
will treat with abx for UTI and bv
recommend close OB f/u
do not suspect pyelo clincally
*Critical Care Note
Total Time (30-74mins, 75-104mins- exclusive of procedures): Not Applicable
ED Attending Note
-
Portions of this chart may have been created with voice recognition software.� Occasional wrong word or��sound alike� substitutions may have occurred due to the inherent limitations of voice recognition software.
Discharge Plan
Departure
Patient Disposition: Home (Routine Discharge)
Date of Disposition: 11/20/24
Time of Disposition: 18:38
Patient with high blood pressure during this ER visit?: No
Condition: Fair
Covid-19: Not Applicable
Discharge Problem:
UTI (urinary tract infection), Bacterial vaginosis
Instructions: Urinary tract infections in adults, Bacterial vaginosis - ED discharge instructions
Prescriptions:
New
metronidazole 0.75 % (37.5mg/5 gram) gel
1 appful vaginal DAILY 5 Days Qty: 70 0RF
cefdinir 300 mg capsule
300 mg PO BID Qty: 14 0RF
No Action
cyclobenzaprine 10 mg tablet
10 mg PO TID PRN (Reason: muscle spasm) Qty: 21 0RF
pyridoxine (vitamin B6) 25 mg tablet
25 mg PO TID Qty: 21 0RF
ondansetron 4 mg tablet,disintegrating
4 mg PO Q6H PRN (Reason: nausea and vomiting) Qty: 20 0RF
ondansetron 4 mg tablet,disintegrating
4 mg PO TIDPRN PRN (Reason: nausea/vomiting) Qty: 20 0RF
Referrals:
Jasmin Huitron CNM [Family Provider] -
Activity Restrictions/Additional Instructions:
I think your symptoms are from a urine infection. Please take cefdinir twice a day starting tomorrow for 7 days. Drink plenty of fluids. You seem to also have a vaginal infection use the vaginal gel at night for 5 nights in a row. You need to
see your DSP ENGINEER to ensure clearance of these infections. Your ultrasound showed a viable with a good heartbeat and a placenta that was high in the fundus and not riding over the cervix. Her cervix was also closed and her not bleeding
here. Follow-up for any concerns, return for any worsening symptoms
Interventions
Interventions:
*Risk Screen - Suicide Last Done: 11/20/24 14:29
*General Assessment Last Done: 11/20/24 14:29
*Neglect/Abuse Screening Last Done: 11/20/24 14:29
*ED COVID-19 Vaccine History Last Done: 11/20/24 14:29
*Nursing Disposition Last Done: 11/20/24 18:53
GT-Tstigj-Ghpijfnrpw Assessment Last Done: 11/20/24 15:44
Discharge Date and Time
Discharge Date/Time: 11/20/24 18:53
Print Language: BULGARIAN
[2024-11-20 16:21] LABS: ALT (SGPT) 10 U/L (0-35); AST (SGOT) 15 U/L (14-36); Albumin 3.6 g/dl (3.5-5.0); Alkaline Phosphatase 114 U/L (38-126); Blood Urea Nitrogen 8 mg/dl (7-17); Calcium 9.3 mg/dl (8.4-10.2); Carbon Dioxide 20 mmol/L (22-30); Chloride 103 mmol/L (98-107); Glucose 118 mg/dl (70-99); Potassium 3.9 mmol/L (3.5-5.1); Sodium 134 mmol/L (135-145); Total Bilirubin 1.1 mg/dl (0.2-1.3); Total Protein 6.3 g/dl (6.3-8.2); eGFR > 60.00
[2024-11-20 16:46] LABS: Lipase 67 U/L (23-300)
[2024-11-20 17:45] LABS: Urine Albumin Trace (Neg - Trace); Urine Bilirubin 1+ (Negative); Urine Character Clear (Clear); Urine Color Yellow; Urine Glucose Negative (Negative); Urine Ketone Negative (Negative); Urine Leukocyte 2+ (Negative); Urine Nitrite Negative (Negative); Urine Occult Blood Negative (Negative); Urine Urobilinogen 3+ (Neg - 1+)
[2024-11-20 17:52] LABS: Urine Red Blood Cell 0-2 /HPF (0-2); Urine Squamous Cell 26-30 /LPF (Few)
[2024-11-20 17:53] VITALS: BP 128/70
[2024-11-20 17:53] LABS: Urine Bacteria Many (Negative); Urine White Cell 30-40 /HPF (0-5)
[2024-11-20] MEDS: ROCEPHIN 1000 MG IV (18:19)
== END 2024-11-20 18:53 | disposition home or self-care (01) ==
LOC: EMR 14:26
PROVIDERS: Physician Assistant; EMERGENCY PHYSICIAN Emergency Medicine; FAMILY PHYSICIAN Advanced Practice Midwife
DX: O23.599 Infection of other part of genital tract in pregnancy, unspecified trimester (principal); N39.0 Urinary tract infection, site not specified; B96.89 Other specified bacterial agents as the cause of diseases classified elsewhere; Z3A.00 Weeks of gestation of pregnancy not specified; Z87.440 Personal history of urinary (tract) infections; Z90.49 Acquired absence of other specified parts of digestive tract
CPT/HCPCS: 99284; 96374; 76815; 80053; 81003; 81015; 83690; 85025; 87086

== ENCOUNTER → 2024-12-07 07:35 | Outpatient (REF) | payer BC, SELFPAY | LOC: PNTC 07:35 | PROVIDERS: ATTENDING PHYSICIAN Advanced Practice Midwife | DX: O26.20 Pregnancy care for patient with recurrent pregnancy loss, unspecified trimester (principal); O09.629 Supervision of young multigravida, unspecified trimester | CPT/HCPCS: 76811 ==

== ENCOUNTER 2024-12-19 01:07 | Emergency (ER) | payer BC, SELFPAY ==
[2024-12-19 01:10] VITALS: BP 114/76
--- NOTE | 2024-12-19 01:44 | ED.GENMED ---
History of Present Illness
<Vani Brewer MD, Resident - Last Filed: 12/19/24 04:37>
General
Chief Complaint: Anal/Rectal Problem
Source: patient
Exam Limitations: none
Time Seen by Provider: 12/19/24 01:21
Nursing documentation reviewed up to this point in time: agreed with
History of Present Illness
History of Present Illness:
34yo F at ~22w with ALEXIS 04/21/25 by 1st trimester ultrasound who presents from home to ED for constipation, abdominal pain, rectal bleeding. She reports significant constipation throughout this , occasionally takes miralax but not
consistently. This evening she had abdominal pain and felt like she needed to have a bowel movement. She says she pushed on the toilet for about 2 hours, passed lot of blood saturated a pad at home, then manually disimpacted herself. She was able to
pass significant amount of stool. Her abdominal pain is constant sharp stabbing, worse in lower right quadrant but occasionally radiates to back or shoulder. She reports anal pain, has not saturated any pads since coming to ED.
In terms of her , she denies intermittent cramps/contractions, leakage of fluid. She does not think she has had any vaginal bleeding. Of note she reports decreased movement since about 7pm. She follows with [facility].
Her is complicated by 7 prior SAB prior to 14 weeks. She had 2 full term deliveries via (primary section 2/2 possible maternal exhaustion during pushing). Her only daily medication is zofran for nausea/vomiting.
Past History
<Vani Brewer MD, Resident - Last Filed: 12/19/24 04:37>
Past History
ED Past Medical History: Other (constipation)
ED Past Surgical History: Cholecystectomy and (x2)
Patient has exhibited threatening behavior?: No
Social History
Tobacco: Non-smoker
Alcohol: None
Drug: None
Personal:
Living: with family
Family History
Family History: Hypertension
Review of Systems
<Vani Brewer MD, Resident - Last Filed: 12/19/24 04:37>
Review of Systems
Allergies reviewed?: Yes
Constitutional: Reports fatigue; Denies fever or chills
EENT: Reports no symptoms
Respiratory: Reports no symptoms; Denies cough or trouble breathing
Cardiac: Reports no symptoms; Denies chest pain or palpitations
ABD/GI: Reports other (see HPI); Denies vomiting or diarrhea
: Reports no symptoms; Denies dysuria or difficulty voiding
Musculoskeletal: Reports no symptoms; Denies joint pain, muscle pain or edema
Skin: Reports no symptoms
Neurological: Reports no symptoms; Denies dizzy, headache or weakness
Endocrine: Reports no symptoms
Hematologic/Lymphatic: Reports no symptoms
Psychiatric: Reports no symptoms
Phy Exam
<Vani Brewer MD, Resident - Last Filed: 12/19/24 04:37>
General Physical Exam
General Presentation: well appearing and no apparent distress
General age: appears stated age
General Skin: warm and dry
General Habitus: normal
General Mental: alert
General Hydration: appears well hydrated
Cardiovascular Exam
Cardiovascular Exam: regular rate/rhythm and no edema
Pulmonary Exam
Pulmonary Exam: no respiratory distress, no stridor, no wheezing and no cough
Oxygen Status: room air
Gastrointestinal Exam
Gastrointestinal Exam: non tender, soft, non distended and other (gravid uterus, fundus firm nontender; abdomen with no rebound/rigidity/guarding)
Neurological Exam
Neurological Exam: alert and speech normal
Musculoskeletal Exam
Musculoskeletal Exam: no edema
Skin Exam
Skin Exam: normal color and warm/dry
Psychiatric Exam
Psychiatric Exam: normal mood/affect
Course
<Vani Brewer MD, Resident - Last Filed: 12/19/24 04:37>
Orders/Labs/Results
Orders:
Orders
12/19/24 01:39
US Limited Urgent
Reason For Exam: decreased movement
12/19/24 02:23
Type+Screen Urgent
12/19/24 03:18
Complete Blood Count/No Diff Urgent
Comprehensive Metabolic Panel Urgent
Abnormal Lab Results
12/19/24
03:18
WBC 13.4 H 10^3/uL
(4.8-10.8)
RBC 4.01 L 10^6/uL
(4.20-5.40)
Hgb 11.4 L g/dL
(12.0-16.0)
Hct 33.4 L %
(37.0-47.0)
Carbon Dioxide 20 L mmol/L
(22-30)
Creatinine 0.5 L mg/dL
(0.6-1.0)
Glucose 130 H mg/dl
(70-99)
Albumin 3.4 L g/dl
(3.5-5.0)
12/19/24 03:18
12/19/24 03:18
Vital Signs
Initial and Last Documented VS:
Initial Vital Signs
Temp Pulse Resp BP Pulse Ox
98.7 F 110 20 114/76 98
12/19/24 01:10 12/19/24 01:10 12/19/24 01:10 12/19/24 01:10 12/19/24 01:10
Last Documented Vital Signs
Temp Pulse Resp BP Pulse Ox
98.7 F 110 20 114/76 98
12/19/24 01:10 12/19/24 01:10 12/19/24 01:10 12/19/24 01:10 12/19/24 01:10
<Farrukh Brandon, DO - Last Filed: 12/19/24 04:30>
Orders/Labs/Results
Orders:
Orders
12/19/24 01:39
US Limited Urgent
Reason For Exam: decreased movement
12/19/24 02:23
Type+Screen Urgent
12/19/24 03:18
Complete Blood Count/No Diff Urgent
Comprehensive Metabolic Panel Urgent
Abnormal Lab Results
12/19/24
03:18
WBC 13.4 H 10^3/uL
(4.8-10.8)
RBC 4.01 L 10^6/uL
(4.20-5.40)
Hgb 11.4 L g/dL
(12.0-16.0)
Hct 33.4 L %
(37.0-47.0)
Carbon Dioxide 20 L mmol/L
(22-30)
Creatinine 0.5 L mg/dL
(0.6-1.0)
Glucose 130 H mg/dl
(70-99)
Albumin 3.4 L g/dl
(3.5-5.0)
12/19/24 03:18
12/19/24 03:18
Vital Signs
Initial and Last Documented VS:
Initial Vital Signs
Temp Pulse Resp BP Pulse Ox
98.7 F 110 20 114/76 98
12/19/24 01:10 12/19/24 01:10 12/19/24 01:10 12/19/24 01:10 12/19/24 01:10
Last Documented Vital Signs
Temp Pulse Resp BP Pulse Ox
98.7 F 110 20 114/76 98
12/19/24 01:10 12/19/24 01:10 12/19/24 01:10 12/19/24 01:10 12/19/24 01:10
<Vani Brewer MD, Resident - Last Filed: 12/19/24 04:37>
MDM/Problems Addressed
Differential Diagnosis Includes:
anal fissure, hemorrhoids, placental abruption
MDM/Problems Addressed:
34yo F at 23w presenting for evaluation of constipation, BRBPR, abdominal pain. Also reports decreased movement.
Patient s/p manual disimpaction herself at home, with some resolution in symptoms.
Still concerning for OB vs GI source of bleeding and abdominal pain, especially given several hours of decreased movement.
Will get OB US and check blood type. Check CBC, CMP.
Defer speculum exam at this time as she has not had any further bleeding.
Will return to reassess symptoms and perform chaperoned rectal exam.
<Vani Brewer MD, Resident - Last Filed: 12/19/24 04:37>
*Critical Care Note
Total Time (30-74mins, 75-104mins- exclusive of procedures): Not Applicable
<Vani Brewer MD, Resident - Last Filed: 12/19/24 04:37>
Update Note
Update Note:
0215: On reevaluation, patient sleeping comfortably, easily arousable with verbal stimuli. She now reports movement. No further bleeding. Rectal exam performed with RN trial examiner. External exam with anal skin tag, no visible blood, no external
hemorrhoids. Digital rectal exam produced sharp pain, there was no stool in rectum, unable to Hemoccult test. Suspect chronic constipation leading to anal fissure. Will proceed with limited OB ultrasound as planned, though it is reassuring that she
is feeling movement.
0410: Limited OB US reassuring-- FHR 152, placenta normal. Stable for discharge home. Daily miralax and colace to prevent further constipation. Sitz baths for anal/rectal discomfort. Return to ED precautions reviewed. Discussed above with patient--
she is understanding and agreeable with plan.
ED Attending Note
<Vani Brewer MD, Resident - Last Filed: 12/19/24 04:37>
-
Portions of this chart may have been created with voice recognition software.� Occasional wrong word or��sound alike� substitutions may have occurred due to the inherent limitations of voice recognition software.
<Farrukh Brandon, DO - Last Filed: 12/19/24 04:30>
ED Attending Note
Patient seen and examined by attending physician: Yes
I performed the substantive portion of visit, reviewed & personally made and approve the management plan that is documented in note by myself or MELI.: Yes
ED Attending Note:
Pleasant 34-year-old female presents to the emergency department with bright red blood which she presumes per rectum. She is and states that she has been very constipated during this time. Tonight she sat on the toilet for a long period
of time with a lot of pushing. She had some rectal bleeding and pain while defecating. She states that the bleeding stopped but she came in for evaluation. She denies any current symptoms. Patient was seen in conjunction with the medical
resident. I have reviewed and agree with her history and treatment plan amended by the physical exam patient is awake, alert, and oriented x 3, in no acute distress resting comfortably on the bed. Heart is regular rate and rhythm. She has no
obvious signs of distress. Abdomen is gravid appearing. She is moving all 4 extremities. Skin appears to be warm and dry. Ultrasound was reviewed and discussed with the patient. Patient is cleared for discharge. She is being discharged in
improved condition.
Discharge Plan
Departure
Patient Disposition: Home (Routine Discharge)
Date of Disposition: 12/19/24
Time of Disposition: 04:17
Patient with high blood pressure during this ER visit?: No
Discharge Problem:
Constipation during , Bright red rectal bleeding, Decreased movement during
Instructions: Constipation, Adult (DC), How to Do a Sitz Bath
Prescriptions:
No Action
cyclobenzaprine 10 mg tablet
10 mg PO TID PRN (Reason: muscle spasm) Qty: 21 0RF
pyridoxine (vitamin B6) 25 mg tablet
25 mg PO TID Qty: 21 0RF
ondansetron 4 mg tablet,disintegrating
4 mg PO Q6H PRN (Reason: nausea and vomiting) Qty: 20 0RF
ondansetron 4 mg tablet,disintegrating
4 mg PO TIDPRN PRN (Reason: nausea/vomiting) Qty: 20 0RF
metronidazole 0.75 % (37.5mg/5 gram) gel
1 appful vaginal DAILY 5 Days Qty: 70 0RF
cefdinir 300 mg capsule
300 mg PO BID Qty: 14 0RF
Referrals:
UNKNOWN - PT DOES,NOT KNOW [Family Provider] -
Karina Hines MD [Active] - Call in 1-3 days for appt (Call your [employer] office to update them on your Emergency Room visit and to schedule your next appointment.)
Activity Restrictions/Additional Instructions:
You were seen in the Emergency Room for constipation, abdominal pain, rectal bleeding.
You also had decreased movement when you first came in-- your brief ultrasound was reassuring.
Please begin taking miralax DAILY and colace DAILY to prevent future constipation.
Call your health spa manager to update them on being seen in the Emergency Room and to schedule your next appointment.
You should also call your Primary Care Provider to schedule an appointment after being seen in the Emergency Room.
Return to the Emergency Room for worsening abdominal pain/rectal bleeding, issues like decreased movement, or new concerns.
Interventions
Interventions:
*Risk Screen - Suicide Last Done: 12/19/24 01:10
*Neglect/Abuse Screening Last Done: 12/19/24 01:10
Discharge Date and Time
Print Language: NORTHER[place] IRISH
[2024-12-19 03:34] LABS: Hematocrit 33.4 % (37.0-47.0); Hemoglobin 11.4 g/dL (12.0-16.0); Mean Corp Hgb Conc. 34.1 g/dL (33.0-37.0); Mean Corpuscular Hgb 28.4 pg (27.0-31.0); Mean Corpuscular Volume 83.3 fL (81.0-99.0); Mean Platelet Volume 9.1 fL (7.4-10.4); Platelet Count 300 10^3/uL (130-400); Red Blood Cell Count 4.01 10^6/uL (4.20-5.40); Red Cell Dist. Width 13.5 % (11.5-14.5); White Blood Cell Count 13.4 10^3/uL (4.8-10.8)
[2024-12-19 03:47] LABS: ALT (SGPT) 10 U/L (0-35); AST (SGOT) 16 U/L (14-36); Albumin 3.4 g/dl (3.5-5.0); Alkaline Phosphatase 123 U/L (38-126); Blood Urea Nitrogen 8 mg/dl (7-17); Calcium 9.2 mg/dl (8.4-10.2); Carbon Dioxide 20 mmol/L (22-30); Chloride 106 mmol/L (98-107); Glucose 130 mg/dl (70-99); Potassium 4.2 mmol/L (3.5-5.1); Sodium 136 mmol/L (135-145); Total Bilirubin 0.4 mg/dl (0.2-1.3); Total Protein 6.3 g/dl (6.3-8.2); eGFR > 60.00
== END 2024-12-19 05:08 | disposition home or self-care (01) ==
LOC: EMR 01:07
PROVIDERS: Student in an Organized Health Care Education/Training Program; EMERGENCY PHYSICIAN Student in an Organized Health Care Education/Training Program
DX: O99.611 Diseases of the digestive system complicating pregnancy, first trimester (principal); K59.00 Constipation, unspecified; O99.891 Other specified diseases and conditions complicating pregnancy; K62.5 Hemorrhage of anus and rectum; O22.42 Hemorrhoids in pregnancy, second trimester; O36.8120 Decreased fetal movements, second trimester, not applicable or unspecified; Z3A.22 22 weeks gestation of pregnancy; R10.9 Unspecified abdominal pain; Z82.49 Family history of ischemic heart disease and other diseases of the circulatory system; Z90.49 Acquired absence of other specified parts of digestive tract
CPT/HCPCS: 99284; 76815; 80053; 85027; 86850; 86900; 86901

== ENCOUNTER 2025-02-12 13:35 | Observation (INO) | payer BC, SELFPAY ==
[2025-02-12 14:03] VITALS: BP 128/73; BMI 32.8
[2025-02-12 15:08] LABS: Hematocrit 30.6 % (37.0-47.0); Hemoglobin 10.3 g/dL (12.0-16.0); Mean Corp Hgb Conc. 33.7 g/dL (33.0-37.0); Mean Corpuscular Hgb 26.8 pg (27.0-31.0); Mean Corpuscular Volume 79.5 fL (81.0-99.0); Mean Platelet Volume 8.2 fL (7.4-10.4); Platelet Count 266 10^3/uL (130-400); Red Blood Cell Count 3.85 10^6/uL (4.20-5.40); Red Cell Dist. Width 12.7 % (11.5-14.5); White Blood Cell Count 8.1 10^3/uL (4.8-10.8)
[2025-02-12 15:17] LABS: INR 0.94; PT 12.9 Sec (11.4-14.6)
[2025-02-12 15:18] LABS: APTT 28.2 Sec (23.4-35.0); Fibrinogen 489 MG/DL (199-459)
== END 2025-02-12 17:32 | disposition home or self-care (01) ==
LOC: LDRP 13:35
PROVIDERS: ADMITTING PHYSICIAN Obstetrics & Gynecology
DX: O36.8130 Decreased fetal movements, third trimester, not applicable or unspecified (principal); Z3A.30 30 weeks gestation of pregnancy; W01.198A Fall on same level from slipping, tripping and stumbling with subsequent striking against other object, initial encounter; Y93.02 Activity, running; Y92.009 Unspecified place in unspecified non-institutional (private) residence as the place of occurrence of the external cause; Z91.018 Allergy to other foods; Z62.810 Personal history of physical and sexual abuse in childhood
CPT/HCPCS: 76815; 85027; 85384; 85610; 85730; 86850; 86900; 86901; G0378

== ENCOUNTER 2025-02-22 20:55 | Observation (INO) | payer BC, SELFPAY ==
[2025-02-22 21:33] VITALS: BP 123/74; BMI 34.4
[2025-02-22 22:06] LABS: % Basophils 0.3 % (0-2); % Eosinophils 1.7 % (0-6); % Immature Granulocytes 0.7 % (0-0.5); % Lymphocytes 23.6 % (20.5-51.1); % Monocytes 6.9 % (1.7-9.3); % Neutrophils 66.8 % (42.2-75.2); Absolute Eosinophils 0.1 10^3/uL (0-0.7); Absolute Immature Granulocytes 0.1 10^3/uL (0-0.05); Absolute Lymphocytes 1.7 10^3/uL (1.2-3.4); Absolute Monocytes 0.5 10^3/uL (0.1-0.6); Absolute Neutrophils 4.8 10^3/uL (1.4-6.5); Hematocrit 29.7 % (37.0-47.0); Mean Corp Hgb Conc. 33.7 g/dL (33.0-37.0); Mean Corpuscular Hgb 26.5 pg (27.0-31.0); Mean Corpuscular Volume 78.6 fL (81.0-99.0); Mean Platelet Volume 8.7 fL (7.4-10.4); Nucleated Red Blood Cells % 0 %; Platelet Count 268 10^3/uL (130-400); Red Blood Cell Count 3.78 10^6/uL (4.20-5.40); Red Cell Dist. Width 12.7 % (11.5-14.5); White Blood Cell Count 7.2 10^3/uL (4.8-10.8)
[2025-02-22 22:19] LABS: ALT (SGPT) < 10 U/L (0-35); AST (SGOT) 15 U/L (14-36); Albumin 3.1 g/dl (3.5-5.0); Alkaline Phosphatase 134 U/L (38-126); Blood Urea Nitrogen 6 mg/dl (7-17); Calcium 9.3 mg/dl (8.4-10.2); Carbon Dioxide 23 mmol/L (22-30); Chloride 105 mmol/L (98-107); Estimated Creatinine Clearance > 125 ml/min; Glucose 110 mg/dl (70-99); Potassium 3.9 mmol/L (3.5-5.1); Sodium 135 mmol/L (135-145); Total Bilirubin 0.8 mg/dl (0.2-1.3); Total Protein 5.6 g/dl (6.3-8.2); eGFR > 60.00
[2025-02-22 22:52] LABS: Urine Albumin 1+ (Neg - Trace); Urine Bilirubin Negative (Negative); Urine Character Cloudy (Clear); Urine Color Yellow; Urine Glucose Negative (Negative); Urine Ketone Negative (Negative); Urine Leukocyte 3+ (Negative); Urine Nitrite Negative (Negative); Urine Occult Blood 1+ (Negative); Urine Specific Gravity 1.015 (<1.030); Urine Urobilinogen Negative (Neg - 1+)
[2025-02-22 23:00] LABS: Urine Bacteria Few (Negative); Urine Red Blood Cell 0-2 /HPF (0-2); Urine Squamous Cell >30 /LPF (Few); Urine White Cell >100 /HPF (0-5)
[2025-02-22 23:35] LABS: HIV Combo Negative (Negative)
[2025-02-23 10:22] LABS: Glycohemoglobin (HgbA1c) 4.9 % (4.0-5.6)
[2025-02-23 17:41] LABS: Hepatitis B Surface Antigen Negative (Negative)
[2025-02-23 17:59] LABS: Hepatitis B Core Ab, Total Negative (Negative); Hepatitis B Surface Antibody Negative; Hepatitis C Antibody Negative (Negative)
[2025-02-25 13:12] LABS: Syphilis/T. pallidum Ab Reflex Negative (Negative)
== END 2025-02-23 00:22 | disposition home or self-care (01) ==
LOC: LDRP 20:55
PROVIDERS: ADMITTING PHYSICIAN Obstetrics & Gynecology
DX: O23.43 Unspecified infection of urinary tract in pregnancy, third trimester (principal); N39.0 Urinary tract infection, site not specified; Z3A.31 31 weeks gestation of pregnancy; R10.9 Unspecified abdominal pain
CPT/HCPCS: 80053; 81003; 81015; 83036; 85025; 86704; 86706; 86780; 86803; 87086; 87340; 87389; 87491; 87591; G0378

== ENCOUNTER 2025-03-17 21:48 | Observation (INO) | payer BC, SELFPAY ==
[2025-03-17 22:22] VITALS: BP 122/79; BMI 34.4
[2025-03-17 23:13] LABS: % Basophils 0.4 % (0-2); % Immature Granulocytes 0.5 % (0-0.5); % Lymphocytes 23.7 % (20.5-51.1); % Monocytes 8.1 % (1.7-9.3); % Neutrophils 66.3 % (42.2-75.2); Absolute Eosinophils 0.1 10^3/uL (0-0.7); Absolute Lymphocytes 1.9 10^3/uL (1.2-3.4); Absolute Monocytes 0.6 10^3/uL (0.1-0.6); Absolute Neutrophils 5.2 10^3/uL (1.4-6.5); Hematocrit 28.4 % (37.0-47.0); Hemoglobin 9.5 g/dL (12.0-16.0); Mean Corp Hgb Conc. 33.5 g/dL (33.0-37.0); Mean Corpuscular Hgb 25.7 pg (27.0-31.0); Mean Corpuscular Volume 76.8 fL (81.0-99.0); Mean Platelet Volume 8.4 fL (7.4-10.4); Nucleated Red Blood Cells % 0 %; Platelet Count 306 10^3/uL (130-400); Red Cell Dist. Width 13.2 % (11.5-14.5); White Blood Cell Count 7.8 10^3/uL (4.8-10.8)
[2025-03-17 23:26] LABS: ALT (SGPT) < 10 U/L (0-35); AST (SGOT) 14 U/L (14-36); Albumin 3.3 g/dl (3.5-5.0); Alkaline Phosphatase 128 U/L (38-126); Blood Urea Nitrogen 4 mg/dl (7-17); Calcium 9.2 mg/dl (8.4-10.2); Carbon Dioxide 23 mmol/L (22-30); Chloride 107 mmol/L (98-107); Estimated Creatinine Clearance > 125 ml/min; Glucose 96 mg/dl (70-99); Potassium 3.8 mmol/L (3.5-5.1); Sodium 136 mmol/L (135-145); Total Bilirubin 0.8 mg/dl (0.2-1.3); Total Protein 5.8 g/dl (6.3-8.2); eGFR > 60.00
[2025-03-17 23:28] LABS: Protein/creatinine Ratio 1.1; Urine Protein 21 mg/dl
[2025-03-18] LABS: Rubella Negative
[2025-03-18 00:16] LABS: Glucose - Point of Care 110 mg/dl (70-99)
== END 2025-03-18 00:37 | disposition home or self-care (01) ==
LOC: LDRP 21:48
PROVIDERS: ADMITTING PHYSICIAN Obstetrics & Gynecology
DX: O99.613 Diseases of the digestive system complicating pregnancy, third trimester (principal); Z3A.35 35 weeks gestation of pregnancy; K21.9 Gastro-esophageal reflux disease without esophagitis; O24.410 Gestational diabetes mellitus in pregnancy, diet controlled
CPT/HCPCS: 80053; 82570; 82962; 84156; 85025; 86762; G0378

== ENCOUNTER → 2025-03-23 14:00 | Outpatient (REF) | payer BC, SELFPAY | LOC: PNTC 14:00 | PROVIDERS: ATTENDING PHYSICIAN Advanced Practice Midwife | DX: O24.419 Gestational diabetes mellitus in pregnancy, unspecified control (principal) | CPT/HCPCS: 59025; 76816; 76818 ==

== ENCOUNTER → 2025-03-24 10:11 | Outpatient (REF) | payer BC, SELFPAY ==
--- NOTE | 2025-03-24 10:13 | PN.DIAED06 ---
Meal Plan - Gestational
- Breakfast
Gestational Diabetes Meal Plan Name: 1800 calories
Breakfast - Total Carbohydrate (grams): 30 (1 carb = 15 g)
Breakfast - Starch Carbohydrate: 1 (carbs: starch, milk, fruit)
Breakfast - Fruit Carbohydrate: 0 (no fruit or juice before noon)
Breakfast - Milk Carbohydrate: 1
Breakfast - Nonstarchy Vegetables: Yes
Breakfast - Meat/Protein: 1 (1 serving protein = 1 oz=7 grams)
Breakfast - Fat: 2
- Morning Snack
Morning Snack - Total Carbohydrate (grams): 30
Morning Snack - Starch Carbohydrate: 1
Morning Snack - Fruit Carbohydrate: 0 (no fruit or juice before noon)
Morning Snack - Milk Carbohydrate: 1
Morning Snack - Nonstarchy Vegetables: Yes
Morning Snack - Meat/Protein: 0.5
Morning Snack - Fat: 0
- Lunch
Lunch - Total Carbohydrate (grams): 45
Lunch - Starch Carbohydrate: 2
Lunch - Fruit Carbohydrate: 1
Lunch - Milk Carbohydrate: 0
Lunch - Nonstarchy Vegetables: Yes
Lunch - Meat/Protein: 2
Lunch - Fat: 1
- Afternoon Snack
Afternoon Snack - Total Carbohydrate (grams): 30
Afternoon Snack - Starch Carbohydrate: 1
Afternoon Snack - Fruit Carbohydrate: 1
Afternoon Snack - Milk Carbohydrate: 0
Afternoon Snack - Nonstarchy Vegetables: Yes
Afternoon Snack - Meat/Protein: 1
Afternoon Snack - Fat: 0
- Dinner
Dinner - Total Carbohydrate (grams): 45
Dinner - Starch Carbohydrate: 2
Dinner - Fruit Carbohydrate: 0
Dinner - Milk Carbohydrate: 1
Dinner - Nonstarchy Vegetables: Yes
Dinner - Meat/Protein: 2
Dinner - Fat: 2
- Evening Snack
Evening Snack - Total Carbohydrate (grams): 30 (eat well balanced snack with carb, protein, fat)
Evening Snack - Starch Carbohydrate: 1
Evening Snack - Fruit Carbohydrate: 0
Evening Snack - Milk Carbohydrate: 1
Evening Snack - Nonstarchy Vegetables: Yes
Evening Snack - Meat/Protein: 1
Evening Snack - Fat: 1
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
== END ==
LOC: DES 10:11
PROVIDERS: ATTENDING PHYSICIAN Advanced Practice Midwife
DX: O24.419 Gestational diabetes mellitus in pregnancy, unspecified control (principal)
CPT/HCPCS: 99078

== ENCOUNTER → 2025-03-28 15:31 | Outpatient (REF) | payer BC, SELFPAY | LOC: PNTC 15:31 | PROVIDERS: ATTENDING PHYSICIAN Obstetrics & Gynecology | DX: O24.419 Gestational diabetes mellitus in pregnancy, unspecified control (principal) | CPT/HCPCS: 59025; 76815 ==

== ENCOUNTER 2025-03-31 20:32 | Inpatient (IN) | payer BC, SELFPAY ==
[2025-03-31 20:21] VITALS: BMI 33.8
[2025-03-31 20:47] VITALS: BP 127/91
[2025-03-31] MEDS: LR 1000 IV ×2 (21:00→23:24)
[2025-03-31 21:07] LABS: Glucose - Point of Care 90 mg/dl (70-99)
[2025-03-31 21:35] LABS: Hematocrit 31.1 % (37.0-47.0); Hemoglobin 10.2 g/dL (12.0-16.0); Mean Corp Hgb Conc. 32.8 g/dL (33.0-37.0); Mean Corpuscular Hgb 25.1 pg (27.0-31.0); Mean Corpuscular Volume 76.4 fL (81.0-99.0); Mean Platelet Volume 8.7 fL (7.4-10.4); Platelet Count 329 10^3/uL (130-400); Red Blood Cell Count 4.07 10^6/uL (4.20-5.40); White Blood Cell Count 9.6 10^3/uL (4.8-10.8)
[2025-03-31] MEDS: ZITHROMAX INFUSION 250 IV (23:22)
[2025-03-31] MEDS: BICITRA 30 ML PO (23:24)
[2025-03-31] MEDS: TYLENOL 1000 MG PO (23:25)
[2025-03-31] MEDS: ANCEF 10 IV (23:25)
[2025-04-01] MEDS: PITOCIN 30 UNITS/NSS 500 ML IV (01:28)
--- NOTE | 2025-04-01 01:53 | HPS.HSE ---
Family Physician
-
Family Physician: NO INTERVIEW UNKNOWN
Chief Complaint
-
spontaneous rupture of membranes
History of Present Illness
HPI: Patient is a 34yo @37.0 who presents to Labor and Delivery with complaints of a gush of clear fluid around 1920. She continues to leak clear fluid. She has contractions but they are not painful. +FM. No vaginal bleeding.
complications:
- Recurrent loss
- History C/Sx2
- GDMA1
- Obesity, BMI 34
- Rubella non-immune
- Depression, Lexapro 10mg daily
- Anemia
PMHx: Obesity, Depression, anemia
Meds: Lexapro 10mg daily, PNV
Surghx: C/Sx2, cholecystectomy, wisdom teeth
NKDA
Socialhx: denies tobacco, etoh or illicit drug use
Famhx: Mother-DM, HTN, preeclampsia, sister preeclampsia, DM; MGM-DM
OBHx: C/Sx2, SABx7
labs: Blood type B+, Ab neg, Rubella non-immune, HBsAg neg, HBsAb neg, Hep B core neg, Hep C neg, GCCT neg, GBS neg, RPR non-reactive
Medical History
Past Medical History
Past Medical History: Reports Psychiatric
Past Surgical History: Reports Cholecystectomy and
Social History
Tobacco: Non-smoker
Alcohol: None
Drug: None
Family History
Family History: Not pertinent
Allergies / Home Medications
Allergies reflects when Allergies were last updated in [facility].
Home Medications with original date entered in [facility]
Allergy/Medication List:
Meds: Lexapro 10mg daily, PNV
All: bananas, NKDA
Review of Systems
-
A 12 point ROS was completed and negative except as noted: Yes
Physical Exam
Vital Signs
Vital Signs
Temp Pulse Resp BP
97.7 F 106 18 127/91
03/31/25 20:47 03/31/25 20:47 03/31/25 20:47 03/31/25 20:47
Physical Exam
General: Well Developed and Well Nourished
HEENT: NormoCephalic
Respiratory: Non Labored Respirations
Cardiac: Regular Rhythm
GI: Soft and Non Tender
Genito-urinary: Other (grossly ruptured for clear fluid)
Skin: Warm and Dry
Neuro: Awake and Alert
Psych: Calm
Laboratory Results
-
03/31/25 21:19
04/01/25 00:15
Laboratory Results
Total Bilirubin Cancelled 04/01/25 00:15
AST Cancelled 04/01/25 00:15
ALT Cancelled 04/01/25 00:15
Alkaline Phosphatase Cancelled 04/01/25 00:15
Impression/Plan
-
IMPRESSION:
Patient is a 34yo @37.0 who presents with spontaneous rupture of membranes, elevated BPs, prior C/Sx2
PLAN:
- Admit for repeat section. Consents reviewed. Consents previously signed in the office
- Ancef 2g and azithromycin 500mg IV ordered
- PEC labs ordered. No s/sx of severe features
- Anesthesia notified
[2025-04-01 02:56] LABS: Protein/creatinine Ratio 0.3; Urine Protein 25 mg/dl
[2025-04-01 03:03] LABS: ALT (SGPT) < 10 U/L (0-35); AST (SGOT) 14 U/L (14-36); Albumin 3.1 g/dl (3.5-5.0); Alkaline Phosphatase 130 U/L (38-126); Blood Urea Nitrogen 5 mg/dl (7-17); Calcium 8.8 mg/dl (8.4-10.2); Carbon Dioxide 25 mmol/L (22-30); Chloride 108 mmol/L (98-107); Estimated Creatinine Clearance > 125 ml/min; Glucose 105 mg/dl (70-99); Sodium 138 mmol/L (135-145); Total Bilirubin 0.7 mg/dl (0.2-1.3); Total Protein 5.6 g/dl (6.3-8.2); eGFR > 60.00
--- NOTE | 2025-04-01 05:20 | OR.RPT ---
Addendum entered and electronically signed by Khushbu Stanley DO 04/01/25 12:46:
Senior Pastor: Dr. Hines
Original Note:
Operative Report
Operative Report
Procedure date: 04/01/2025
Preop diagnosis: Prior C/Sx2, spontaneous rupture of membranes, GDMA1
Postop diagnosis: same, adhesive disease
Procedure: Repeat low transverse section
Surgeon: Jaden
Anesthesia: Spinal, Dr. Marshall
QBL: 745mL
Ray catheter draining clear urine before and after the procedure
Findings: Viable male infant born at 0012, Apgars 8/9, dense fascial adhesion, fascia adhered to rectus muscle, omentum adhered to fascia, unable to exteriorize uterus due to adhesions- not able to visualize fallopian tubes or ovaries, extension on
the left side of the hysterotomy. Surgicel placed over hysterotomy at the end of the procedure
Complications: none
Indication: Patient is a 34yo @37.1 who presented to Labor and Delivery with complaints of spontaneous rupture of membranes. She was found to be grossly ruptured for clear fluid. She has a history of 2 prior sections so she was not
a candidate for a trial of labor after section. The decision was made to proceed with repeat section. Consents had previously been signed in the office. Anesthesia was notified.
Procedure: Patient was taken to the operating room where spinal anesthesia was administered and found to be adequate. 2g of Ancef and 500mg of Azithromycin were given for antibiotic prophylaxis. The abdomen was prepped with ChloraPrep. The patient
was draped in the normal sterile fashion. She was placed in the dorsal supine position with a left lateral tilt. A Pfannenstiel incision was made with a 10 blade and carried down to the fascia with a scalpel. Hemostasis achieved with Bovie. The
fascia was incised and dissected laterally with Foster scissors. The fascia was very dense and adhesed to the rectus muscle. The superior aspect of the fascia was grasped with Adalgisa clamps. The underlying rectus fascia was sharply dissected with Foster
scissors. In a similar fashion the inferior aspect of the fascia was elevated with Adalgisa clamps and the rectus muscle was dissected off with Foster scissors. The rectus muscles were down the midline to the level of the pubic symphysis with
manual dissection and Metzenbaum scissors. The peritoneum had previously been entered while dissecting the rectus muscles off of the fascia. The omentum was adhered to the fascia. Some small omental adhesions were taken down with Bovie cautery to
allow for visualization of the uterus and were hemostatic. The peritoneum was extended using manual traction and Metzenbaum scissors.
Bellamy retractor and bladder blade were placed revealing good visualization of the bladder. The vesicouterine peritoneum was identified. A very thin lower uterine segment was noted. The lower uterine segment was incised with a scalpel. Clear
amniotic fluid noted at entry. The uterine incision was extended bluntly with lateral and upward traction.
The fetus was in cephalic presentation. The head was elevated out of the pelvis with special attention paid to avoid using the uterine incision as a fulcrum. Gentle fundal pressure was applied once the head was brought to the incision and the head
delivered through the hysterotomy. The rest of the infant delivered without difficulty. Delayed cord clamping was performed. The infant was handed off to the spooler operator automatic. IV oxytocin was started to facilitate uterine contractions. The placenta was
delivered with fundal massage and gentle downward traction. The uterus was not able to be exteriorized due to adhesions. Zana retractor was placed in the abdomen. Allis clamps were placed at the apices of the hysterotomy. The inside of the uterus
was wiped with a lap sponge to assure complete removal of placental membranes. Fundal massage was performed and uterus was firm. The uterine incision was closed with 0 Vicryl in a running locked fashion. A horizontal imbricating stitch was done on
the hysterotomy with 0 Vicryl. There was oozing on the left corner and a figure of eight was placed. An extension on the left side of the hysterotomy was noted. This was repaired with 0 Vicryl in a running continuous fashion. A figure of eight was
also placed at the site of extension to achieve hemostasis. Bovie cautery was used on oozing areas of the serosa. The hysterotomy was inspected and noted to be hemostatic. The Zana retractor was removed from the abdomen. The hysterotomy was
inspected again and was hemostatic. Surgicel was placed over the hysterotomy.
The rectus muscles were inspected and were hemostatic. The fascial layer was closed in a running continuous fashion using 0 Vicryl. The subcutaneous tissue was copiously irrigated and any small bleeding vessels were cauterized with Bovie cautery.
The subcutaneous tissue was reapproximated in a running continuous fashion with 2-0 Plain. The skin was closed with 4-0 Vicryl in a subcuticular fashion and covered with skin glue and a pressure dressing. The patient tolerated the procedure well.
All sponge and instrument counts were correct times two. The patient was taken to the recovery room in stable condition. Ray catheter was draining clear urine at the end of the procedure.
[2025-04-01] MEDS: LEXAPRO 10 MG PO (07:39)
[2025-04-01] MEDS: MYLICON 80 MG PO (07:39)
[2025-04-01] MEDS: SENOKOT-S 1 TABLET PO (07:39)
[2025-04-01] MEDS: PRENATAL PLUS 1 TABLET PO (07:39)
[2025-04-01] MEDS: PERCOCET 5/325 1 TABLET PO (14:59)
[2025-04-01] MEDS: PERCOCET 5/325 2 TABLET PO (21:53)
[2025-04-01] MEDS: MOTRIN 600 MG PO (22:38)
[2025-04-02] MEDS: PERCOCET 5/325 1 TABLET PO ×2 (04:54→21:10)
[2025-04-02] MEDS: MOTRIN 600 MG PO ×3 (04:54→21:10)
[2025-04-02 04:56] LABS: Hematocrit 26.1 % (37.0-47.0); Hemoglobin 8.3 g/dL (12.0-16.0); Mean Corp Hgb Conc. 31.8 g/dL (33.0-37.0); Mean Corpuscular Hgb 24.9 pg (27.0-31.0); Mean Corpuscular Volume 78.4 fL (81.0-99.0); Mean Platelet Volume 8.7 fL (7.4-10.4); Platelet Count 278 10^3/uL (130-400); Red Blood Cell Count 3.33 10^6/uL (4.20-5.40); Red Cell Dist. Width 14.1 % (11.5-14.5); White Blood Cell Count 10.7 10^3/uL (4.8-10.8)
[2025-04-02] MEDS: SENOKOT-S 1 TABLET PO (08:31)
[2025-04-02] MEDS: FEOSOL 325 MG PO (08:31)
[2025-04-02] MEDS: LEXAPRO 10 MG PO (08:31)
[2025-04-02] MEDS: PRENATAL PLUS PO (08:33)
[2025-04-02] MEDS: M-M-R II 0.5 ML SC (08:41)
[2025-04-02] MEDS: PERCOCET 5/325 2 TABLET PO (14:16)
[2025-04-03] MEDS: MOTRIN 600 MG PO ×3 (05:55→21:57)
[2025-04-03] MEDS: PERCOCET 5/325 1 TABLET PO ×2 (05:55→14:36)
[2025-04-03] MEDS: SENOKOT-S 1 TABLET PO (07:48)
[2025-04-03] MEDS: LEXAPRO 10 MG PO (07:48)
[2025-04-03] MEDS: FEOSOL 325 MG PO (07:48)
[2025-04-03] MEDS: PRENATAL PLUS PO (07:50)
[2025-04-03] MEDS: MIRALAX 17 GRAMS PO (09:34)
[2025-04-03] MEDS: MYLICON 80 MG PO (20:02)
[2025-04-03] MEDS: PERCOCET 5/325 2 TABLET PO (21:58)
[2025-04-04] MEDS: PERCOCET 5/325 1 TABLET PO (08:43)
[2025-04-04] MEDS: PRENATAL PLUS PO ×2 (08:43→08:48)
[2025-04-04] MEDS: FEOSOL 325 MG PO (08:43)
[2025-04-04] MEDS: LEXAPRO 10 MG PO (08:43)
[2025-04-04] MEDS: SENOKOT-S 1 TABLET PO (08:46)
[2025-04-04] MEDS: MOTRIN 600 MG PO ×2 (08:52→14:59)
--- NOTE | 2025-04-04 09:47 | W.DS.TRANS ---
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
-
Discharge Instructions:
Discharge Diagnosis/Procedures delivered by repeat ; SROM;
prior csections. Gestational hypertension-diet
controlled. Mild asymptomatic anemia, anxiety
Diet Regular
Activity No strenuous activity
Driving Restrictions No driving for 2 weeks
Bathing Restrictions OK to Shower
Instructions:
Stand-Alone Forms: LDRP Delivery
Changes to Home Medications: No
Discharge Medications:
DC Medications w/original date entered in [facility]
escitalopram oxalate 10 mg tablet (Lexapro) 10 mg PO DAILY 03/17/25
prenat.vits,bin,yzj-gfzg-tgqxi 1 tab PO DAILY 03/17/25
ferrous sulfate 325 mg (65 mg iron) tablet (FeroSul) 325 mg PO DAILY #0 tabs 04/04/25
ibuprofen 100 mg/5 mL oral suspension 600 mg (30 mL) PO Q6HPRN PRN cramps #840 mL 04/04/25
oxycodone-acetaminophen 5 mg-325 mg tablet (Percocet) 1 tab PO Q6H PRN severe pain #12 tabs 04/04/25
Home Medication Changes
Pending Results: No
Total time spent discharging patient (in min): 30
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
[2025-04-05 14:14] LABS: Syphilis/T. pallidum Ab Reflex Negative (Negative)
== END 2025-04-04 19:15 | disposition home or self-care (01) | DRG 787 ==
LOC: LDRP 20:32
PROVIDERS: Obstetrics & Gynecology; ADMITTING PHYSICIAN Student in an Organized Health Care Education/Training Program; CONSULT PHYSICIAN Psychiatry & Neurology Psychiatry
PROC: 0JNC0ZZ Release Pelvic Region Subcutaneous Tissue and Fascia, Open Approach (ICD-10-PCS; 2025-04-01)
PROC: 10D00Z1 Extraction of Products of Conception, Low, Open Approach (ICD-10-PCS; 2025-04-01)
PROC: 3E0134Z Introduction of Serum, Toxoid and Vaccine into Subcutaneous Tissue, Percutaneous Approach (ICD-10-PCS; 2025-04-02)
DX: O42.02 Full-term premature rupture of membranes, onset of labor within 24 hours of rupture (principal); F33.0 Major depressive disorder, recurrent, mild; Z3A.37 37 weeks gestation of pregnancy; Z37.0 Single live birth; O34.211 Maternal care for low transverse scar from previous cesarean delivery; O26.23 Pregnancy care for patient with recurrent pregnancy loss, third trimester; O24.420 Gestational diabetes mellitus in childbirth, diet controlled; O99.214 Obesity complicating childbirth; O99.02 Anemia complicating childbirth; D64.9 Anemia, unspecified; N73.6 Female pelvic peritoneal adhesions (postinfective); R03.0 Elevated blood-pressure reading, without diagnosis of hypertension; O99.344 Other mental disorders complicating childbirth; F41.9 Anxiety disorder, unspecified; F43.10 Post-traumatic stress disorder, unspecified; Z23 Encounter for immunization; Z90.49 Acquired absence of other specified parts of digestive tract; Z91.018 Allergy to other foods; Z87.440 Personal history of urinary (tract) infections; Z83.3 Family history of diabetes mellitus; Z82.49 Family history of ischemic heart disease and other diseases of the circulatory system
CPT/HCPCS: 80053; 82570; 82962; 84156; 85027; 86780; 86850; 86900; 86901; 90707

== ENCOUNTER 2025-09-08 21:14 | Emergency (ER) | payer BC, SELFPAY ==
[2025-09-08 21:17] VITALS: BP 135/88
--- NOTE | 2025-09-08 22:14 | ED.GENMED ---
History of Present Illness
General
Chief Complaint: Fall
Source: patient
Exam Limitations: none
Time Seen by Provider: 09/08/25 22:00
History of Present Illness
History of Present Illness:
34yo left hand dominant female with no significant past medical history presenting via EMS for evaluation after a fall about 1.5 hours ago. Patient was walking down carpeted steps with socks when she slipped and landed on her left side. She denies
any head strike or loss of consciousness. Due to the severity of her pain, she had to call EMS. Her main complaint at this point is left lower back pain. She also report coccyx pain and left elbow pain. No headache or neck pain. She does not
take any blood thinners. Patient had a in March of this year. She is not currently breast-feeding.
Past History
Past History
ED Past Medical History: Other (constipation)
ED Past Surgical History: Cholecystectomy and (x2)
Patient has exhibited threatening behavior?: No
Social History
Tobacco: Non-smoker
Alcohol: None
Drug: None
Personal:
Living: with family
Family History
Family History: Hypertension
Phy Exam
General Physical Exam
General Presentation: well appearing and no apparent distress
General Skin: warm and dry
General Habitus: normal
General Mental: alert
ENT Exam
ENT Exam: normocephalic and other (No external signs of head trauma. No cervical spine tenderness.)
Pulmonary Exam
Pulmonary Exam: lungs clear, no respiratory distress, no rales, no crackles, no rhonchi and no wheezing
Neurological Exam
Neurological Exam: alert
Jennifer Coma Scale
Eye Opening: Spontaneous
Verbal Response: Oriented
Motor Response: Obeys Commands
GCS Total Score: 15
Musculoskeletal Exam
Musculoskeletal Exam: full ROM (No swelling noted to L elbow and ROM intact. 2+ radial pulse and sensation intact. ) and other (+Tenderness in L lumbar region. No ecchymosis noted. )
Skin Exam
Skin Exam: normal color and warm/dry
Psychiatric Exam
Psychiatric Exam: normal mood/affect
Course
Orders/Labs/Results
Orders:
Orders
09/08/25 22:13
Oxycodone/Acetaminophen [Percocet 5/325] 1 tablet PO NOW STA
CR Elbow - Left Min 3 Views Urgent
Comment:
Reason For Exam: pain, injury
CR Lumbar Spine Comp Min 4 Vw* Urgent
Comment:
Reason For Exam: low back pain, fall
09/08/25 22:15
CR Sacrum/coccyx Min 2 View Urgent
Comment:
Reason For Exam: pain, fall
09/09/25 00:05
Ketorolac [Toradol] 30 mg IM NOW STA
Vital Signs
Initial and Last Documented VS:
Initial Vital Signs
Temp Pulse Resp BP Pulse Ox
98.3 F 89 21 135/88 99
09/08/25 21:17 09/08/25 21:17 09/08/25 21:17 09/08/25 21:17 09/08/25 21:17
Last Documented Vital Signs
Temp Pulse Resp BP Pulse Ox
98.3 F 89 21 135/88 99
09/08/25 21:17 09/08/25 21:17 09/08/25 21:17 09/08/25 21:17 09/08/25 22:15
MDM/Problems Addressed
Differential Diagnosis Includes:
34yoF here after a fall down 3 steps this evening. C/o low back pain and L elbow pain. No head strike, LOC, or blood thinners. Vital stable. Patient is awake, alert, with a GCS of 15. There is left paraspinal lumbar tenderness on exam. Left
shoulder normal to inspection without swelling or deformity. Differential diagnosis includes: Soft tissue injury, sprain, fracture
X-rays of left elbow, lumbar spine, and sacrum/coccyx obtained. No fractures seen per my interpretation. She was given Percocet initially with some improvement but still having pain so IM Toradol ordered. Supportive care discussed including ice,
lidocaine patches, and Tylenol/ibuprofen. Prescription provided for Flexeril. Advised follow-up with PCP/orthopedics if symptoms persist and she was discharged stable condition.
*Pulse Oximetry
SaO2: 99
Oxygen Mode of Delivery: Room air
Patient hypoxic: no
*Critical Care Note
Total Time (30-74mins, 75-104mins- exclusive of procedures): Not Applicable
ED Attending Note
-
Portions of this chart may have been created with voice recognition software.� Occasional wrong word or��sound alike� substitutions may have occurred due to the inherent limitations of voice recognition software.
Discharge Plan
Departure
Patient Disposition: Home (Routine Discharge)
Date of Disposition: 09/09/25
Time of Disposition: 00:06
Patient with high blood pressure during this ER visit?: No
Discharge Problem:
Fall down steps, Acute low back pain, Left elbow pain
Instructions: Low back pain - ED (DC)
Prescriptions:
New
cyclobenzaprine 10 mg tablet
10 mg PO TIDPRN PRN (Reason: muscle spasm) Qty: 20 0RF
No Action
escitalopram oxalate [Lexapro] 10 mg Tablet
10 mg PO DAILY
prenat.vits,bin,fgt-lmwo-msare Tablet
1 tab PO DAILY
ferrous sulfate [FeroSul] 325 mg (65 mg iron) Tablet
325 mg PO DAILY Qty: 0 0RF
ibuprofen 100 mg/5 mL Suspension
600 mg PO Q6HPRN PRN (Reason: cramps) Qty: 840 0RF
oxycodone-acetaminophen [Percocet] 5-325 mg tablet
1 tab PO Q6H PRN (Reason: severe pain) Qty: 12 0RF
Referrals:
[facility] [Provider Group]
NONE,* [Family Provider, Internal Medicine]
Abhijit Baez MD [Active, Orthopedics]
Activity Restrictions/Additional Instructions:
Apply ice to affected area. Use lidocaine patches daily (12 hours on, 12 hours off). Take Tylenol 650 mg ibuprofen 600 mg every 6 hours as needed. Take Flexeril (muscle relaxer) as needed for spasms.
Please follow-up with your family doctor and orthopedics if symptoms persist. Return to the ER with any new or worsening symptoms
Interventions
Interventions:
*Risk Screen - Suicide Last Done: 09/08/25 21:22
*General Assessment Last Done: 09/08/25 22:14
*Neglect/Abuse Screening Last Done: 09/08/25 21:22
*ED- Fall Risk Assessment Last Done: 09/08/25 22:14
*ED COVID-19 Vaccine History Last Done: 09/08/25 22:14
*ED Influenza Vaccine History Last Done: 09/08/25 22:14
*Nursing Disposition Last Done: 09/09/25 00:32
ED-Musculoskeletal Assessment Last Done: 09/08/25 22:17
ED- Neurological Assessment Last Done: 09/08/25 22:17
ED-Skin Assessment Last Done: 09/08/25 22:17
Discharge Date and Time
Discharge Date/Time: 09/09/25 00:35
Print Language: MALTESE
[2025-09-08 22:15] VITALS: BMI 33.5
[2025-09-08] MEDS: PERCOCET 5/325 1 TABLET PO (22:22)
[2025-09-09] MEDS: TORADOL 30 MG IM (00:15)
== END 2025-09-09 00:35 | disposition home or self-care (01) ==
LOC: EMR 21:14
PROVIDERS: EMERGENCY PHYSICIAN Emergency Medicine
DX: M54.50 Low back pain, unspecified (principal); M25.522 Pain in left elbow; W10.9XXA Fall (on) (from) unspecified stairs and steps, initial encounter
CPT/HCPCS: 99284; 96372; 72110; 72220; 73080